=== PATIENT | male | born 1990 | race Caucasian/White ===

== ENCOUNTER 2019-01-14 13:59 | Emergency (ER) | payer OTHER ==
[2019-01-14] MEDS ORDERED: IPRATROPIUM/ALBUTEROL (0.5MG/3MG) NEB INH ONE (14:12)
[2019-01-14] MEDS ORDERED: ALBUTEROL SULFATE (0.083%) 2.5 MG/3 ML NEB INH ONE (14:17)
[2019-01-14] MEDS ORDERED: PREDNISONE 20 MG TAB PO ONE (14:17)
--- NOTE | 2019-01-14 14:31 | Emergency Department Record ---
History of Present Illness - General Chief Complaint: Asthma Stated Complaint: JAMIE Time Seen by Provider: 01/14/19 14:11 Source: Patient Mode of Arrival: Ambulatory Limitations: No limitations - History of Present Illness Initial Comments: The patient is here with a 24 hour hx of SOB and wheezing after running out of his inhaller recently. He does have a hx of asthma but has not needed to be admitted for it except when he had a collapsed lung. The patient has had a mild cough and runny nose for the last few days. He has never been admitted to the ICU or intubated. MD Complaint: "Asthma attack", Shortness of breath Onset/Timin -: Hour(s) Asthma History: Childhood onset, Adult onset Severity: Moderate Context: Ran out of meds Associated Symptoms: Dry cough Treatments Prior to Arrival: Inhaled bronchodilator Treatment Prior to Arrival Comment:: ventolin - Related Data Current Asthma Therapy: Inhaled bronchodilator Home Medications Medication Instructions Recorded Confirmed Last Taken Albuterol Sulfate [Ventolin Hfa] 1 - 2 puff IH .EVERY 4-6 HOURS PRN 01/14/19 01/14/19 Unknown Previous Rx's Medication Instructions Recorded Albuterol Sulfate [Proair Hfa] 2 puff IH QID PRN #1 inhaler 01/14/19 Azithromycin [Zithromax] 250 mg PO ASDIR #6 tab 01/14/19 Prednisone [Prednisone 20Mg] 40 mg PO DAILY #8 tab 01/14/19 Allergies Allergy/AdvReac Type Severity Reaction Status Date / Time nut - unspecified Allergy HIVES Verified 01/14/19 14:08 Travel Screening - Travel/Exposure Within Last 30 Days Have you traveled within the last 30 days?: No Review of Systems Constitutional: Denies: Chills, Fever Eyes: Denies: Eye discharge ENT: Reports: Congestion Respiratory: Reports: Cough. Denies: Dyspnea Past Medical History - SOCIAL HISTORY Smoking Status: Never smoker Alcohol Use: None Drug Use: None - RESPIRATORY Hx Respiratory Disorders: Yes Hx Asthma: Yes Comment:: seasonal allergies - CARDIOVASCULAR Hx Cardio Disorders: No - NEURO Hx Neuro Disorders: No - GI Hx GI Disorders: No - Hx Genitourinary Disorders: No - ENDOCRINE Hx Endocrine Disorders: No - MUSCULOSKELETAL Hx Musculoskeletal Disorders: No - PSYCH Hx Psych Problems: No - HEMATOLOGY/ONCOLOGY Hx Hematology/Oncology Disorders: No Family Medical History Any Significant Family History?: No Physical Exam - General General Appearance: Alert, Oriented x3, Cooperative, No acute distress - Head Head exam: Atraumatic, Normocephalic, Normal inspection - Eye Eye exam: Normal appearance, PERRL - ENT Throat exam: Normal inspection. negative: Tonsillar erythema, Tonsillar exudate - Neck Neck exam: Normal inspection, Full ROM. negative: Tenderness - Respiratory Respiratory exam: Normal lung sounds bilaterally. negative: Respiratory distress, Rhonchi, Stridor, Wheezes - Cardiovascular Cardiovascular Exam: Regular rate, Normal rhythm, Normal heart sounds - GI/Abdominal GI/Abdominal exam: Soft, Normal bowel sounds. negative: Tenderness - Extremities Extremities exam: Normal inspection, Full ROM, Normal capillary refill. negative: Tenderness - Back Back exam: Reports: Normal inspection - Neurological Neurological exam: Alert, Normal gait. negative: Abnormal gait, Motor sensory deficit - Psychiatric Psychiatric exam: negative: Depressed Course Vital Signs 01/14/19 01/14/19 14:02 14:14 Temperature 98.4 F Pulse Rate 80 106 H Respiratory 20 18 Rate Blood Pressure 134/88 Pulse Ox 97 98 - Reevaluation(s) Reevaluation #1: I was not able to examine the patient until after his Duoneb tx and his lungs were clear on exam without any wheezing. 01/14/19 14:32 Reevaluation #2: The patient is doing a lot better at this time. He states his breathing is feeling back to normal and he denies any pain. On exam his lungs are clear with no wheezing or rhonchi. I did discuss the CXR report with him and the need for F/U. 01/14/19 15:46 Medical Decision Making - Data Complexity MDM Data: X-Ray Ordered and/or Reviewed - Radiology Data Radiology results: Report reviewed (CXR: Clear lungs except for a possible cavitary lesion ELZA [place] 1.8 cm, possible artifact.) Disposition Disposition: Discharge Clinical Impression: Acute asthma exacerbation Qualifiers: Asthma severity: mild Asthma persistence: unspecified Qualified Code(s): J45.901 - Unspecified asthma with (acute) exacerbation Disposition: Home, Self-Care Condition: (2) Stable Instructions: Asthma (ED) Additional Instructions: Please take the medicines as directed and please see your family doctor later this week for recheck. Please also discuss the CXR report with your PCP and the fact you may need a chest CT or compare this film today with your old films. Return to the ER for any worsening symptoms. Prescriptions: Prednisone [Prednisone 20Mg] 40 mg PO DAILY #8 tab Albuterol Sulfate [Proair Hfa] 2 puff IH QID PRN #1 inhaler PRN Reason: Cough And Difficulty Breathing Azithromycin [Zithromax] 250 mg PO ASDIR #6 tab Forms: Patient Portal Access Time of Disposition: 15:50 Quality - Quality Measures Quality Measures: N/A - Blood Pressure Screening View Details: Yes Does Patient Have Any of the Following: No Blood Pressure Classification: Pre-Hypertensive BP Reading Systolic Measurement: 134 Diastolic Measurement: 88 Screening for High Blood Pressure: < Pre-Hypertensive BP, F/U Documented > [G8950] Pre-Hypertensive Follow-up Interventions: Referral to alternative/primary care provider.
--- NOTE | 2019-01-15 15:21 | RADIOLOGY REPORT ---
EXAM: CHEST, TWO VIEWS HISTORY: COUGH WITH ASTHMA. TECHNIQUE: PA and lateral views of the chest were obtained. Comparison: None. FINDINGS: The heart size is within normal limits. No definite acute infiltrate seen. There is a suggestion of a small cavitary like lesion in the left apical region measuring about 1.8 cm in size. This may just be some form of artifact, perhaps related to some pleural thickening, but an actual apical lung lesion cannot be excluded. Apical lordotic view might be useful for further evaluation. No pleural effusion or pneumothorax evident. IMPRESSION: 1. QUESTIONABLE APICAL CAVITARY LESION. FOLLOW-UP DESCRIBED ABOVE SUGGESTED. 2. ELSEWHERE THE CHEST X-RAY APPEARS NEGATIVE. JOB NUMBER: [id number] MTDD
== END 2019-01-14 16:04 | disposition home or self-care (01) ==
LOC: ER 13:59
DX: J45.901 Unspecified asthma with (acute) exacerbation (principal); R06.02 Shortness of breath; R91.8 Other nonspecific abnormal finding of lung field
CPT/HCPCS: 71046; 94640; 99284; J7512; J7613